=== PATIENT | male | born 2000 | race Caucasian/White ===

== ENCOUNTER 2022-02-24 13:07 | Outpatient (REF) | payer OTHER, SELFPAY ==
[2022-02-24 13:51] LABS: COVID-19 Test Negative (Negative); IDNOW Serial# 16C4AD1C
== END 2022-02-24 13:08 | disposition home or self-care (01) ==
LOC: HO.LAB 13:07
PROVIDERS: Visit Provider Internal Medicine
DX: Z20.822 Contact with and (suspected) exposure to COVID-19 (principal)
CPT/HCPCS: 87635

== ENCOUNTER 2022-05-15 19:34 | Outpatient (REF) | payer OTHER, SELFPAY ==
[2022-05-15 20:26] LABS: COVID-19 Test Negative (Negative); IDNOW Serial# 55D5AD1C
== END 2022-05-15 19:35 | disposition home or self-care (01) ==
LOC: HO.LAB 19:34
PROVIDERS: Visit Provider Internal Medicine
DX: Z20.822 Contact with and (suspected) exposure to COVID-19 (principal)
CPT/HCPCS: 87635

== ENCOUNTER 2023-08-09 11:17 | Outpatient (REF) | payer OTHER, SELFPAY ==
[2023-08-09 11:56] LABS: COVID-19 Test Negative (Negative); IDNOW Serial# BCCEAD1C
== END 2023-08-09 11:18 | disposition home or self-care (01) ==
LOC: HO.LAB 11:17
PROVIDERS: Visit Provider Physician Assistant
DX: Z11.52 Encounter for screening for COVID-19 (principal)
CPT/HCPCS: 87635

== ENCOUNTER 2024-11-01 16:21 | Emergency (ER) | payer OTHER, SELFPAY ==
[2024-11-01 16:36] VITALS: BP 141/94; PULSE 92; RESP 18; TEMP 36.5; O2SAT 98; BMI 25.4
--- NOTE | 2024-11-01 16:53 | ED_ITS ---
HPI - General Adult General Chief complaint: General Medical Stated complaint: needle stick employee Time Seen by Provider: 11/01/24 16:44 Source: patient History of Present Illness ED Provider: Penny Keys PA-C HPI narrative: 24-year-old male presents after needlestick. Patient is a [employer] employee, he was subsequently stuck by a needle by a low risk patient. He is here for post exposure prophylaxis. Related Data Allergies Allergy/AdvReac Type Severity Reaction Status Date / Time Sulfa (Sulfonamide Allergy Unknown Verified 11/01/24 16:39 Antibiotics) Review of Systems 2 Review of Systems: Yes all other systems are reviewed and are negative Constitutional: Constitutional: Denies fatigue and Denies fever(s) Endocrine: Endocrine: Denies fatigue Physical Exam ED Vital Signs: Vital Signs - 24 hr 11/01/24 16:36 Temperature 97.7 F Pulse Rate 92 Respiratory Rate 18 Blood Pressure 141/94 H Pulse Oximetry 98 Oxygen Delivery Method Room Air BMI result Body Mass Index 25.4 Const Other: Alert Resp Effort & Inspection: normal respiratory effort Cardio Other: Normal peripheral perfusion Skin Other: Warm dry no rash, there is a slight excoriation over the forearm Psych Other: Cooperative Medical Decision Making Medical Decision Making MDM Narrative: 24-year-old male presents after needlestick. Patient is a [employer] employee, he was subsequently stuck by a needle by a low risk patient. He is here for post exposure prophylaxis. No chronic issues History: Per patient I have considered the following differential diagnoses: Exposure to potential blood borne pathogens. Plan: The patient was requesting post exposure prophylaxis, has the source patient information, however it was unclear why, we are unable to talk with the source patient to have them agree to testing. We are performing screening labs including hep B and C panel, we will be initiating post exposure prophylaxis. He will go to the work connection and proceed per hospital protocol with testing of the source patient etc.. Lab Data 11/01/24 17:01 11/01/24 17:01 Labs: Lab Results 11/01/24 Range/Units 17:01 WBC 8.2 (4.8-10.8) X10*3/uL RBC 4.99 (4.60-5.80) X10*6/uL Hgb 15.0 (14.0-18.0) g/dl Hct 44.4 (42.0-52.0) % MCV 89.0 (80.0-98.0) fL MCH 30.1 (27.0-33.0) pg MCHC 33.8 (31.0-36.0) g/dl RDW 12.3 (11.0-16.0) % Plt Count 273 (160-400) X10*3/uL MPV 9.1 L (9.4-12.4) fL Immature Gran % (Auto) 0.2 (0.0-0.4) % Neut % (Auto) 64.0 (45-73) % Lymph % (Auto) 29.1 (20-40) % [place] % (Auto) 5.6 (2-11) % Eos % (Auto) 0.5 (0-4) % Baso % (Auto) 0.6 (0-2) % Lymph # (Auto) 2.4 (1.2-4.9) X10*3/uL [place] # (Auto) 0.5 (0.1-1.2) X10*3/uL Eos # (Auto) 0.0 (0.0-0.4) X10*3/uL Baso # (Auto) 0.1 (0.0-0.2) X10*3/uL Abs Immat Gran (auto) 0.02 (0.00-0.03) X10*3/uL Absolute Neuts (auto) 5.2 (2.0-8.3) x10*3/uL Absolute Nucleated RBC 0.000 (0.0-0.012) X10*3/uL Nucleated RBC % (auto) 0.0 (0.0-0.2) /100WBC Discharge Plan Discharge Clinical Impression: Exposure to blood-borne pathogen Patient Disposition: Home, Self-Care Additional Instructions: You were started on post exposure prophylaxis against HIV, take the medication as directed. I would contact the source patient to see if they are willing to be tested, if they screen negative, you could discontinue the use of the antiviral medication. Print Language: Salvadorean
[2024-11-01 17:12] LABS: MANUAL DIFF FLAG NO
[2024-11-01 17:14] LABS: Basophils Absolute Auto 0.1 X10*3/uL (0.0-0.2); Basophils Percent Auto 0.6 % (0-2); Eosinophils Percent Auto 0.5 % (0-4); Hematocrit 44.4 % (42.0-52.0); Imm Gran Abs Auto 0.02 X10*3/uL (0.00-0.03); Imm Gran Pct Auto 0.2 % (0.0-0.4); Lymphocytes Absolute Auto 2.4 X10*3/uL (1.2-4.9); Lymphocytes Percent Auto 29.1 % (20-40); Mean Corpuscular HGB Conc 33.8 g/dl (31.0-36.0); Mean Corpuscular Hemoglobin 30.1 pg (27.0-33.0); Mean Platelet Volume 9.1 fL (9.4-12.4); Monocytes Absolute Auto 0.5 X10*3/uL (0.1-1.2); Monocytes Percent Auto 5.6 % (2-11); Neutrophils Absolute Auto 5.2 x10*3/uL (2.0-8.3); Platelet Count 273 X10*3/uL (160-400); Red Blood Count 4.99 X10*6/uL (4.60-5.80); Red Cell Distribution Width 12.3 % (11.0-16.0); White Blood Count 8.2 X10*3/uL (4.8-10.8)
[2024-11-01 17:30] LABS: Alanine Aminotransferase 18 U/L (0-40); Albumin Level 4.9 g/dL (3.5-5.0); Alkaline Phosphatase 58 U/L (39-117); Anion Gap 14 (12-20); Aspartate Amino Transferase 25 U/L (5-37); Bilirubin Total 0.5 mg/dL (0.0-1.0); Blood Urea Nitrogen 14 mg/dL (9-16); Calcium 9.6 mg/dL (8.4-10.2); Carbon Dioxide 26 mmol/L (22-29); Chloride 103 mmol/L (96-108); Creatinine Clr Calc Pharmacy 119.7; Estimated Glomerular Filt Rate > 60; Glucose Random 94 mg/dL (60-115); Potassium 4.1 mmol/L (3.3-5.1); Sodium 139 mmol/L (135-145); Total Protein 7.6 g/dL (6.5-8.0)
[2024-11-01] MEDS: Post Exposure Medication Kit 1 KIT PO (17:49)
[2024-11-01 17:54] VITALS: BP 141/94; PULSE 92; RESP 18; TEMP 36.5; O2SAT 98
[2024-11-02 05:26] LABS: HBS Num1 22.18 mIU/mL (0-7.99); HBc Num1 0.06 S/CO (0.00-0.79); HBsAGNum1 0.28 S/CO (0.00-0.99); Hepatitis B Core Antibody Nonreactive (Nonreactive); Hepatitis B Surface Antigen Negative (Negative); ~HepC Num1 0.09 S/CO (0.00-0.79); ~Hepatitis B Surface Antibody REACTIVE (Nonreactive)
[2024-11-02 05:27] LABS: Hepatitis C Ab Exposure Source NonReactive (Nonreactive)
== END 2024-11-01 17:54 | disposition home or self-care (01) ==
PROVIDERS: Physician Assistant Medical; Emergency Provider Emergency Medicine Emergency Medical Services
DX: Z20.828 Contact with and (suspected) exposure to other viral communicable diseases (principal); Z79.899 Other long term (current) drug therapy
CPT/HCPCS: 36415; 80053; 83735; 85025; 86803; 99282; 99283

== ENCOUNTER 2024-12-27 06:46 | Outpatient (REF) | payer OTHER, SELFPAY ==
[2024-12-27 06:56] LABS: MANUAL DIFF FLAG NO
[2024-12-27 07:24] LABS: Basophils Absolute Auto 0.1 X10*3/uL (0.0-0.2); Basophils Percent Auto 1.1 % (0-2); Eosinophils Absolute Auto 0.2 X10*3/uL (0.0-0.4); Eosinophils Percent Auto 2.6 % (0-4); Hematocrit 45.7 % (42.0-52.0); Hemoglobin 15.5 g/dl (14.0-18.0); Imm Gran Abs Auto 0.01 X10*3/uL (0.00-0.03); Imm Gran Pct Auto 0.2 % (0.0-0.4); Lymphocytes Absolute Auto 2.5 X10*3/uL (1.2-4.9); Lymphocytes Percent Auto 38.8 % (20-40); Mean Corpuscular HGB Conc 33.9 g/dl (31.0-36.0); Mean Corpuscular Volume 88.6 fL (80.0-98.0); Mean Platelet Volume 9.5 fL (9.4-12.4); Monocytes Absolute Auto 0.6 X10*3/uL (0.1-1.2); Monocytes Percent Auto 8.6 % (2-11); Neutrophils Absolute Auto 3.2 x10*3/uL (2.0-8.3); Neutrophils Percent Auto 48.7 % (45-73); Platelet Count 248 X10*3/uL (160-400); Red Blood Count 5.16 X10*6/uL (4.60-5.80); Red Cell Distribution Width 12.2 % (11.0-16.0); White Blood Count 6.5 X10*3/uL (4.8-10.8)
[2024-12-27 08:09] LABS: Alanine Aminotransferase 21 U/L (0-40); Albumin Level 4.7 g/dL (3.5-5.0); Alkaline Phosphatase 56 U/L (39-117); Anion Gap 9 (12-20); Aspartate Amino Transferase 24 U/L (5-37); Blood Urea Nitrogen 12 mg/dL (9-16); Calcium 9.7 mg/dL (8.4-10.2); Carbon Dioxide 31 mmol/L (22-29); Chloride 102 mmol/L (96-108); Estimated Glomerular Filt Rate > 60; Glucose Random 96 mg/dL (60-115); Potassium 4.1 mmol/L (3.3-5.1); Sodium 138 mmol/L (135-145); Total Protein 7.4 g/dL (6.5-8.0)
[2024-12-27 08:25] LABS: Thyroid Stimulating Hormone 1.19 uIU/mL (0.32-4.0)
== END 2024-12-27 06:47 | disposition home or self-care (01) ==
LOC: HO.LAB 06:46
PROVIDERS: PCP Student in an Organized Health Care Education/Training Program; Visit Provider Student in an Organized Health Care Education/Training Program
DX: C61 Malignant neoplasm of prostate (principal)
CPT/HCPCS: 36415; 80053; 84443; 85025

== ENCOUNTER 2025-04-16 08:10 | Outpatient (REF) | payer OTHER, SELFPAY ==
--- OUTSIDE RECORDS SUMMARY | 2025-04-16 08:16 | XMS_ITS | Clinical Summary ---
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 Not on tami e 05/14/2024 Are you concerned about learning? Not on file 05/14/2024 No 05/14/2024 No 05/14/2024 Digital Access Answer Date Recorded No 05/14/2024 No 05/14/2024 Reliable internet access at home? Not on file 05/14/2024 Device with a working camera? Not on file Intimate Partner Violence Answer Date R ecorded Are you denied basic needs s uch as food, clothing, or medical care? No 05/14/2024 In the past 12 months have y ou been in a relationship with a person who hurts, threatens, or tries to control you? No 05/14/2024 Are you denied basic needs s uch as food, clothing, or medical care? No 05/14/2024 In the past 12 months have y ou been in a relationship with a person who hurts, threatens, or tries to control you? No 05/14/2024 Sex and Gender Information Value Date Recorded Sex Assigned at Male 05/14/2024 2:49 PM EDT Legal Sex Male 2:32 PM EDT Gender Identity Male 05/14/2024 2:49 PM EDT Sexual Orientation Straight 05/14/2024 2: 49 PM EDT Last Filed Vital Signs Vital Sign Reading Time Taken Comments Blood Pressure 139/80 05/14/2024 4:56 PM EDT Pulse 88 05/14/2024 4:56 PM EDT Temperature 37 C (98.6 F) 05/14/2024 4:56 PM EDT Respiratory Rate 16 05/14/2024 4:56 PM EDT Oxygen Saturation 100% 05/14/2024 4:56 PM EDT Inhaled Oxygen Concentration - - Weight 72.6 kg (160 lb) 05/14/2024 2:47 PM EDT Height 175.3 cm (5' 9 ) 05/14/2024 2:47 PM EDT Body Mass Index 23.63 05/14/2024 2:47 PM EDT Plan of Treatment Health Maintenance Due Date Last Done Comments DEPRESSION SCREENING 2012 SMOKING Hx and SMOKELESS TOB ACCO SCREENING 2013 HPV VACCINES (1 - Male 3-dos e series) 10/23/2015 HEPATITIS C SCREENING 2018 HIV ONE-TIME SCREENING (18-6 5 YEARS) 2018 COVID-19 VACCINE (1 - 2023-2 5 season) 2024 Adult Td,Tdap Booster 05/14/2034 05/14/2024 HEPATITIS A VACCINES Aged Out No long er eligible based on patient's age to complete this topic HIB VACCINES Aged Out No longer eligi ble based on patient's age to complete this topic MENINGOCOCCAL VACCINES (ACWY) Aged Out No longer eligible based on patient's age to complete this topic MENINGOCOCCAL VACCINES (B) Aged Out N o longer eligible based on patient's age to complete this topic PNEUMOCOCCAL VACCINES (0-49 years) Aged Out No longer eligible based on patient's age to complete this topic Medical Devices Not on file Insurance DADA PPO CIGNA PPO CIGNA PPO CIGNA PPO CIGNA PPO CIGNA PPO Care Teams Coin Rolling Machine Operator Relationship Specialty Start Date End Date Pcp, Unknown PCP - General 05/14/24 Additional Source Comments The information contained in this document represents components of the legal health record. It is not the complete legal health record.[facility]
--- OUTSIDE RECORDS SUMMARY | 2025-04-16 08:16 | XMS_ITS | Clinical Summary ---
Author Organization [facility] Address [address] [place] [address] Care Team Providers Care Parking Lot Supervisor Name Role Phone Unavailable Primary Care Provider Unavailabl e Social History Tobacco Use Types Packs/Day Years Used Date Smoking Tobacco: Never Assessed Sex and Gender Information Value Date Recorded Sex Assigned at Not on file Legal Sex Male 10:35 AM EST Gender Identity Not on file Sexual Orientation Not on file Plan of Treatment Health Maintenance Due Date Last Done Comments HPV Vaccines (1 - Male 3-dos e series) 10/23/2015 DTaP,Tdap,and Td Vaccines (1 - Tdap) 10/23/2019 Hepatitis B Vaccines (1 of 3 - 19+ 3-dose series) 10/23/2019 HIV Screening 09/09/2023 Hepatitis C Screening 09/09/2023 Social Influencers of Health Screening 09/09/2023 Depression Screening 08/11/2024 COVID-19 Vaccine ( - 2023-2 5 season) 2025 Influenza Vaccine (#1) 2025 HIB Vaccines Aged Out No longer eligi ble based on patient's age to complete this topic Hepatitis A Vaccines Aged Out No long er eligible based on patient's age to complete this topic IPV Vaccines Aged Out No longer eligi ble based on patient's age to complete this topic MMR Vaccines Aged Out No longer eligi ble based on patient's age to complete this topic Meningococcal ACWY Vaccine Aged Out N o longer eligible based on patient's age to complete this topic Meningococcal B Vaccine Aged Out No l onger eligible based on patient's age to complete this topic Pneumococcal Vaccine: Pediat rics (0 to 5 Years) and At-Risk Patients (6 to 49 Years) Aged Out No longer eligible b ased on patient's age to complete this topic RSV Immunization Patients Un carmen 20 months Aged Out No longer eligible b ased on patient's age to complete this topic Varicella Vaccines Aged Out No longer eligible based on patient's age to complete this topic
[2025-04-16 14:38] LABS: CT PCR Urine NOT DETECTED (Not Detect.); NG PCR Urine NOT DETECTED (Not Detect.)
[2025-04-18 04:18] LABS: HBc Num1 0.05 S/CO (0.00-0.79); HBsAGNum1 0.34 S/CO (0.00-0.99); HIV Num 1 0.05 S/CO (0.00-0.99); Hepatitis B Surface Antigen Negative (Negative); ~HepC Num1 0.05 S/CO (0.00-0.79); ~Hepatitis C Antibody Nonreactive (Nonreactive)
[2025-04-21 18:07] LABS: Treponema pallidum Ab FTA ABS Nonreactive (Nonreactive)
== END 2025-04-16 08:11 | disposition home or self-care (01) ==
LOC: HO.LAB 08:10
PROVIDERS: PCP Student in an Organized Health Care Education/Training Program; Visit Provider Student in an Organized Health Care Education/Training Program
DX: Z11.3 Encounter for screening for infections with a predominantly sexual mode of transmission (principal); Z11.59 Encounter for screening for other viral diseases; Z11.4 Encounter for screening for human immunodeficiency virus [HIV]; Z11.8 Encounter for screening for other infectious and parasitic diseases; Z20.2 Contact with and (suspected) exposure to infections with a predominantly sexual mode of transmission; Z72.89 Other problems related to lifestyle
CPT/HCPCS: 86704; 86780; 86803; 87340; 87389; 87491; 87591